=== PATIENT | female | born 1945 | race African-American/Black ===

== ENCOUNTER → 2017-01-24 | Outpatient (CLI) | payer MEDICARE, OTHER ==
[~2017-01-24] VITALS: Ht 167.6 cm; Wt 80.0 kg
[~2017-01-24] MED LIST: ALBU8.5H IH; CYCL10 PO; DICL2100G TP; ESCI10TA PO; GABA-529 PO; MOME13HF IH; PANT40TA25 PO
[2017-01-24 11:05] VITALS: BP 144/78
== END | disposition home or self-care (01) ==
LOC: SRCNTR 10:53
PROVIDERS: ATTEND Internal Medicine Critical Care Medicine
DX: J45.909 Unspecified asthma, uncomplicated (principal); I10 Essential (primary) hypertension; J47.9 Bronchiectasis, uncomplicated
CPT/HCPCS: G0463

== ENCOUNTER → 2017-01-27 | Outpatient (CLI) | payer MEDICARE, OTHER ==
[~2017-01-27] MED LIST changes: -CYCL10 PO; -ESCI10TA PO
== END | disposition home or self-care (01) ==
LOC: LABPV 15:43
PROVIDERS: ATTEND Internal Medicine Critical Care Medicine
DX: J47.9 Bronchiectasis, uncomplicated (principal)
CPT/HCPCS: 86480

== ENCOUNTER 2021-03-17 06:14 | Day surgery (SDC) | payer MEDICARE, OTHER ==
[2021-03-15 15:00] LABS: COVID AG,FIA SOURCE NASOPHARYNGEAL
[~2021-03-17] VITALS: Ht 167.6 cm; Wt 72.7 kg
[~2021-03-17 06:14] MED LIST changes: -ALBU8.5H IH; +ALBU8.5H8 IH; +GABA-1216 PO; -GABA-529 PO; +PANT-31 PO; -PANT40TA25 PO; +SODIUM CHLORIDE 0.9% 1,000 ML ONE
[2021-03-17] MEDS ORDERED: ALBUTEROL SULFATE 2.5 MG/0.5 ML NEB SOLUTION NEB ONE (06:15)
[2021-03-17] MEDS ORDERED: LIDOCAINE 2% 30 ML JELLY TP ONE (06:15)
[2021-03-17] MEDS ORDERED: BENZOCAINE 20% 50 MCG/SPRAY 57 GM TP ONE (06:15)
[2021-03-17] MEDS ORDERED: LIDOCAINE 4% 50 ML SOLUTION TP ONE (06:15)
[2021-03-17] MEDS ORDERED: SODIUM CHLORIDE 0.9% 1,000 ML IV ONE (06:30)
[2021-03-17] MEDS ORDERED: FAMO1TAB29 PO (07:05)
[2021-03-17] MEDS ORDERED: MONT-35 PO (07:05)
[2021-03-17] MEDS ORDERED: SITA100 PO (07:05)
[2021-03-17] MEDS ORDERED: OMEP20 PO (07:05)
[2021-03-17] MEDS ORDERED: DOCU-350 PO (07:05)
[2021-03-17] MEDS ORDERED: FLUT16H NASAL (07:05)
[2021-03-17] MEDS ORDERED: ALBU8HFA IH (07:05)
[2021-03-17] MEDS ORDERED: LOSA25TA21 PO (07:05)
[2021-03-17] MEDS ORDERED: PROM6.2514 PO (07:05)
[2021-03-17] MEDS ORDERED: KETO5DRO6 OU (07:05)
[2021-03-17] MEDS ORDERED: HYPR15DR23 OU (07:05)
[2021-03-17] MEDS ORDERED: VIT1TAB.9 PO (07:05)
[2021-03-17] MEDS ORDERED: CHOL200016 PO (07:05)
[2021-03-17] MEDS ORDERED: BUDE10.2 IH (07:05)
[2021-03-17] MEDS ORDERED: MECO10005 PO (07:05)
[2021-03-17] MEDS ORDERED: ROSU20TA73 PO (07:05)
[2021-03-17] MEDS ORDERED: FentaNYL CITRATE PF 100 MCG/2 ML VIAL ONE (07:24)
[2021-03-17] MEDS ORDERED: MIDAZOLAM HCL 5 MG/ML VIAL ONE (07:25)
[2021-03-17 08:51] LABS: GLUCOMETER DEV NAME(LOC) SDS.; GLUCOSE,POINT OF CARE 107 MG/DL (70-110)
[2021-03-17] MEDS ORDERED: MethylPREDNISolone SOD SUCC 125 MG/2 ML VIAL ONE (09:28)
[2021-03-17] MEDS ORDERED: MethylPREDNISolone SOD SUCC 125 MG/2 ML VIAL IVP ONE (09:30)
[2021-03-17] MEDS ORDERED: OXYGEN THERAPY IH SCH (20:00)
== END 2021-03-17 10:30 | disposition home or self-care (01) ==
LOC: SURGERY 06:14
PROVIDERS: ATTEND Internal Medicine Critical Care Medicine
DX: J38.4 Edema of larynx (principal); B37.0 Candidal stomatitis; J45.909 Unspecified asthma, uncomplicated; E78.5 Hyperlipidemia, unspecified; Z79.899 Other long term (current) drug therapy; Z98.890 Other specified postprocedural states
CPT/HCPCS: 31623; 31624; 71045; 82962; 87015; 87070; 87101; 87206; 87220; 87426; 88108; 88184; 88185; 88312; C9803; J2250; J2930; J3010; J7030; J7613; Z7610

== ENCOUNTER 2023-09-22 06:54 | Day surgery (SDC) | payer MEDICARE, OTHER ==
[~2023-09-22] VITALS: Ht 167.6 cm; Wt 70.4 kg
[~2023-09-22 06:54] MED LIST changes: +ALBU18HF12 IH; -ALBU8.5H8 IH; +BUDE10.2 IH; +CHOL200059 PO; -DICL2100G TP; +DOCU-412 PO; +FAMO1TAB30 PO; +FLUT16SP NASAL; -GABA-1216 PO; +HYPR15DR23 OU; +KETO-99 OU; +LOSA-381 PO; +MECO10005 PO; -MOME13HF IH; +MONT-35 PO; +OMEP20 PO; -PANT-31 PO; +PROM5L PO; +ROSU20TA73 PO; +SITA100 PO; +VIT1TAB.9 PO
[2023-09-22] MEDS ORDERED: BENZOCAINE 20% 50 MCG/SPRAY 57 GM TP ONE (06:55)
[2023-09-22] MEDS ORDERED: LIDOCAINE 4% 50 ML SOLUTION TP ONE (06:55)
[2023-09-22] MEDS ORDERED: LIDOCAINE 2% 11 ML JELLY TP ONE (06:55)
[2023-09-22] MEDS ORDERED: ALBUTEROL SULFATE 2.5 MG/0.5 ML NEB SOLUTION NEB ONE (06:55)
[2023-09-22] MEDS ORDERED: SODIUM CHLORIDE 0.9% 1,000 ML IV ONE (07:00)
[2023-09-22] MEDS ORDERED: EPINEPHrine 1:10,000 [1 MG/10 ML] SYRINGE ONE (07:40)
[2023-09-22] MEDS ORDERED: NALOXONE HCL 0.4 MG/ML VIAL ONE (07:40)
[2023-09-22] MEDS ORDERED: DiphenhydrAMINE HCL 50 MG/ML VIAL ONE (07:40)
[2023-09-22] MEDS ORDERED: ATROPINE SULFATE 0.1 MG/ML 10 ML SYRINGE IVP ONE (07:40)
[2023-09-22] MEDS ORDERED: SODIUM TETRADECYL SULFATE 3% 60 MG/2 ML VIAL IVP ONE (07:40)
[2023-09-22] MEDS ORDERED: FLUMAZENIL 0.1 MG/ML 5 ML VIAL IVP ONE (07:40)
[2023-09-22] MEDS ORDERED: SODIUM CHLORIDE 0.9% 1,000 ML ONE (07:52)
[2023-09-22] MEDS ORDERED: FentaNYL CITRATE PF 100 MCG/2 ML VIAL ONE (08:25)
[2023-09-22] MEDS ORDERED: MIDAZOLAM HCL 2 MG/2 ML VIAL ONE (08:25)
[2023-09-22 08:31] LABS: GLUCOMETER DEV NAME(LOC) SDS.; GLUCOSE,POINT OF CARE 94 MG/DL (70-110)
[2023-09-22 09:15] VITALS: PULSE 69; RESP 18; O2SAT 100
[2023-09-22] MEDS ORDERED: MethylPREDNISolone SOD SUCC 125 MG/2 ML VIAL IVP ONE (10:00)
[2023-09-22] MEDS ORDERED: MethylPREDNISolone SOD SUCC 125 MG/2 ML VIAL ONE (10:07)
== END 2023-09-22 12:15 | disposition home or self-care (01) ==
LOC: SURGERY 06:54
PROVIDERS: ATTEND Internal Medicine Critical Care Medicine
DX: R05.3 Chronic cough (principal); R91.1 Solitary pulmonary nodule; J98.09 Other diseases of bronchus, not elsewhere classified; J98.8 Other specified respiratory disorders; R91.8 Other nonspecific abnormal finding of lung field; E11.9 Type 2 diabetes mellitus without complications; J44.9 Chronic obstructive pulmonary disease, unspecified; Z98.890 Other specified postprocedural states; Z88.6 Allergy status to analgesic agent
CPT/HCPCS: 82962; 87206; 87101; 87220; 87070; 31623; 31624; 94640; 71045; 87015; J3010; J2250; J2930; Q9967; J7030; J0171; J0461; J1200; J2310; J3490; J7613; Z7610